=== PATIENT | female | born 1950 | race Caucasian/White ===

== ENCOUNTER 2024-09-18 02:06 | Outpatient (CLI) | payer MEDICARE, SELFPAY ==
--- NOTE | 2024-09-18 | ETT_ITS ---
APPROVED REPORT Exam: Exercise Treadmill Patient Location: Out-Patient Room/Bed: Stress Nurse: Waleska Stone RN; Ashleigh Chavez RN Ordering Provider:JEAN-PAUL GANDARA, Contact Number: [phone] BMI: 33.62 Baseline Rhythm: Sinus Rhythm Indications: other form of dyspnea Medical History Medical History: PEREIRA, HLD, Pre diabetes, depression,HTN, Venous insufficiency Cardiac Medications: Losartan Allergies: sulfa, amlodipine Cardiac Risk Factors: family Hx, HTN, HLD, PVD Previous Cardiac Procedures: none Pretest Chest Pain Characteristics: none Exercise History: Indeterminate Physical Disabilities: none Lung Sounds: Clear to auscultation Heart Sounds: Regular Stress Test Details Test: Exercise stress testing was performed using a Shubham protocol. Rest Stress HR Resting HR Supine: 71 bpm Max Heart Rate (APMHR): 144 bpm Resting HR Standin bpm Target HR (85% APMHR): 122 bpm Max HR Achieved: 146 bpm % of APMHR: 101 Recovery HR: 82 bpm HR response to stress: Normal HR response to stress BP Resting BP Supine: 168/90 mmHg Resting BP Standin/82 mmHg Max BP: 218/82 mmHg Recovery BP: 150/82 mmHg BP response to stress: hypertensive response to stress. ECG Resting ECG: Sinus Rhythm Ectopy: none Stress ECG: Sinus Tachycardia ST Change: No significant ST segment changes noted Recovery ECG: Sinus Rhythm Recovery ST Change: No significant ST segment changes noted Clinical Reason for Termination: 100% HR Achieved Stress Symptoms: none Exercise duration: 05 min00 sec Highest Stage Reached: Stage 2: 2.5 mph at 12% grade. Exercise capacity: 7.02 METs Angina Score: none Rate Pressure Product: [id number] Stress ECG Conclusion 1. Resting electrocardiogram showed low voltage 2. Patient exercised on the Shubham protocol completed a workload of 7 METS 3. Normal heart rate response to exercise. The patient achieved 100% of predicted heart rate for age . Hypertensive blood pressure response to exercise 4. There was no electrocardiographic evidence of myocardial ischemia 5. There were no significant dysrhythmias Stress Test Summary STAGE Time (mins) Speed (mph) Grade (%) HR BP SpO2 SYMPTOMS METS Supine 71 168/90 97 Standing 73 158/82 1 3 1.7 10 120 190/98 96 4.5 2 6 2.5 12 145 7 1 min recovery 117 218/82 98 3 min recovery 76 170/84 98 6 min recovery 82 150/82
== END 2024-09-18 02:26 ==
LOC: DI 02:08
PROVIDERS: PCP Family Medicine; Visit Provider Internal Medicine Cardiovascular Disease
DX: R06.09 Other forms of dyspnea (principal)
CPT/HCPCS: 93016; 93018; 93017